=== PATIENT | male | born 1980 | race Caucasian/White ===

== ENCOUNTER 2018-06-11 09:25 | Day surgery (SDC) | payer BC ==
[~2018-06-11 09:25] MED LIST: BENZOIN/ALOE VERA/STORAX/TOLU 58 ML BOTTLE TP ONE; BUPIVACAINE HCL/PF (5 MG/ML) 30 ML VIAL IJ ONE
[2018-06-11] MEDS ORDERED: SODIUM CHLORIDE 1,000 ML IV STA (09:54)
--- NOTE | 2018-06-11 10:00 | PDOC ---
History of Present Illness - General Chief Complaint: Pain Stated Complaint: RIGHT ABD PAIN Time Seen by Provider: 06/11/18 09:43 History Source: Patient, Family Exam Limitations: No Limitations - History of Present Illness Initial Comments: 06/11/18 09:56 CC: RLQ pain since midnight last night HPI: was well all day yesterday, ate normally awake from sleep at [place] last night with RLQ focal pain no N/V/D nl BM this am no dysuria but RLQ pain feels a little different after urination no fever or chills no hx of abd surgery PMH: circumcision for phimosis ROS: no f/c no n/v no diarrhea or constipation no recent uri or cough no cp or sob no leg swelling or pain no skin rash no dysuria or frequency no testicular pain or masses Past History - Past Medical History Allergies/Adverse Reactions: Allergies Allergy/AdvReac Type Severity Reaction Status Date / Time No Known Allergies Allergy Verified 06/11/18 09:41 Home Medications: Ambulatory Orders Bismuth Subsalicylate [Pepto-Bismol -] 524 mg PO ONCE 06/11/18 Asthma: No COPD: No Diabetes: No HTN: No - Surgical History Other Surgical History: 06/11/18 09:58 circumcision for phimosis - Suicide/Smoking/Psychosocial Hx Smoking History: Never smoked Hx Alcohol Use: Yes (OCCASIONAL) Drug/Substance Use Hx: No Substance Use Type: None *Physical Exam - Vital Signs Last Vital Signs Temp Pulse Resp BP Pulse Ox 98.9 F 73 16 130/88 99 06/11/18 09:40 06/11/18 09:40 06/11/18 09:40 06/11/18 09:40 06/11/18 09:40 - Physical Exam Comments: 06/11/18 09:59 GENERAL: The patient is awake, alert, and fully oriented, in no acute distress. HEAD: Normal with no signs of trauma. EYES: Pupils equal, round and reactive to light, extraocular movements intact, sclera anicteric, conjunctiva clear. ENT: Ears normal, nares patent, oropharynx clear without exudates. Moist mucous membranes. NECK: Normal range of motion, supple without lymphadenopathy, JVD, or masses. LUNGS: Breath sounds equal, clear to auscultation bilaterally. No wheezes, and no crackles. HEART: Regular rate and rhythm, normal S1 and S2 without murmur, rub or gallop. ABDOMEN: Soft, positive focal McBurney's point tenderness, normoactive bowel sounds. No guarding, no rebound. No masses. : nl testes, NT, nl phallus, no discharge EXTREMITIES: Normal range of motion, no edema. No clubbing or cyanosis. No cords, erythema, or tenderness. NEUROLOGICAL: Cranial nerves II through XII grossly intact. Normal speech, normal gait. PSYCH: Normal mood, normal affect. SKIN: Warm, Dry, normal turgor, no rashes or lesions noted. Moderate Sedation - Procedure Monitoring Vital Signs: Procedure Monitoring Vital Signs Temperature 98.9 F 06/11/18 09:40 Pulse Rate 73 06/11/18 09:40 Respiratory Rate 16 06/11/18 09:40 Blood Pressure 130/88 06/11/18 09:40 O2 Sat by Pulse Oximetry (%) 99 06/11/18 09:40 ED Treatment Course - LABORATORY CBC & Chemistry Diagram: 06/11/18 10:05 06/11/18 10:05 - RADIOLOGY Radiology Studies Ordered: Category Date Time Status ABDOMEN & PELVIS CT WITH CONTR [CT] Stat CT Scan 06/11/18 09:53 Ordered Medical Decision Making - Medical Decision Making 06/11/18 11:44 Patient with RLQ pain since last night, no other symptoms. On exam there is focal tenderness at McBurneys point. CT positive for early appendicitis. Surgical consult requested. Antibiotics ordered. 06/11/18 12:[address] Rodriguez in the OR at [facility], and to SERENITY Cartwright in OR they advised send over to [facility] by ambulance for anticipated OR Dr. Rodriguez will see the patient in PACU there labs reviewed, stable patient remains NPO since last night Laboratory Results - last 24 hr 06/11/18 06/11/18 06/11/18 09:55 10:05 10:05 WBC 7.9 RBC 5.05 Hgb 15.0 Hct 45.9 MCV 90.9 MCH 29.7 MCHC 32.7 RDW 13.3 Plt Count 200 MPV 9.8 Absolute Neuts (auto) 5.4 Neutrophils % 67.0 Lymphocytes % 26.7 Monocytes % 4.2 Eosinophils % 1.5 Basophils % 0.6 Sodium 137 Potassium 4.1 Chloride 102 Carbon Dioxide 28 Anion Gap 7 L BUN 16 Creatinine 0.9 Creat Clearance w eGFR 93.46 Random Glucose 93 Calcium 9.2 Total Bilirubin 0.7 AST 21 ALT 29 Alkaline Phosphatase 53 Total Protein 7.8 Albumin 4.1 Urine Color Yellow Urine Appearance Clear Urine pH 7.0 Urine Protein Negative Urine Glucose (UA) Negative Urine Ketones Negative Urine Blood Negative Urine Nitrite Negative Urine Bilirubin Negative Urine Urobilinogen 0.2 Ur Leukocyte Esterase Negative *DC/Admit/Observation/Transfer Diagnosis at time of Disposition: Appendicitis, acute Qualifiers: Acute appendicitis type: unspecified acute appendicitis type Qualified Code(s) : K35.80 - Unspecified acute appendicitis - Discharge Dispostion Condition at time of disposition: Good Decision to Admit order: Yes Decision to Admit order Date/Time: 06/11/18 12:26 Dr Rodriguez accepting at [facility] - Referrals Referrals: Leonor Martini MD [Primary Care Provider] - - Patient Instructions - Post Discharge Activity
[2018-06-11 10:19] LABS: BASO % 0.6 % (0-2.0); EOS % 1.5 % (0-4.5); HEMATOCRIT 45.9 % (35.4-49); LYMPH % 26.7 % (8-40); MCH 29.7 pg (25.7-33.7); MCHC 32.7 g/dl (32.0-35.9); MEAN CELL VOLUME 90.9 fl (80-96); MEAN PLT VOLUME 9.8 fl (7.5-11.1); MONO % 4.2 % (3.8-10.2); PLATELET COUNT 200 K/MM3 (134-434); RBC 5.05 M/mm3 (4.00-5.60); RDW 13.3 % (11.9-15.9); WHITE BLOOD COUNT 7.9 K/mm3 (4.0-10.8)
[2018-06-11 10:31] LABS: ALBUMIN 4.1 g/dl (3.4-5.0); ALK PHOS 53 U/L (45-117); ANION GAP 7 MMOL/L (8-16); BILIRUBIN,TOTAL 0.7 mg/dl (0.2-1); BLOOD UREA NITROGEN 16 mg/dl (7-18); CALCIUM 9.2 mg/dl (8.5-10); CHLORIDE 102 mmol/L (98-107); CO2 28 mmol/L (21-32); CREATININE 0.9 mg/dl (0.55-1.3); GLUCOSE,RANDOM 93 mg/dl (74-106); POTASSIUM 4.1 mmol/L (3.5-5.1); SGOT/AST 21 U/L (15-37); SGPT/ALT 29 U/L (13-61); SODIUM 137 mmol/L (136-145); TOT PROT 7.8 g/dl (6.4-8.2)
[2018-06-11] MEDS ORDERED: PIPERACILLIN/TAZOB 4.5 GM 4.5 GM in DEXTROSE 5%-WATER 100 ML IVPB ONE (11:46)
[2018-06-11] MEDS ORDERED: PIPERACILLIN/TAZOBACTAM 4.5 GM VIAL IVPB ONE (11:47)
[2018-06-11] MEDS ORDERED: PROMETHAZINE HCL 25 MG/1 ML VIAL IVPUSH PRN (13:52)
[2018-06-11] MEDS ORDERED: ONDANSETRON 4 MG/2 ML VIAL IVPUSH PRN (13:52)
[2018-06-11] MEDS ORDERED: BUPIVACAINE HCL/PF 0.5% (5MG/ML) 10 ML VIAL ONE (13:53)
[2018-06-11] MEDS ORDERED: ROCURONIUM BROMIDE 50 MG/5 ML VIAL ONE (14:04)
[2018-06-11] MEDS ORDERED: PROPOFOL 20 ML ONE ×2 (14:04→16:35)
--- NOTE | 2018-06-11 14:39 | HP ---
Admitting History and Physical - Primary Care Physician PCP: Seth Chaidez I - Admission Chief Complaint: RLQ pain History of Present Illness: 38yo M with h/o PUD, s/p endoscopy and circumcision, presented to [facility] ER with RLQ pain beginning overnight, though on retrospect he noted gas pains/ generalized abdominal discomfort at first. This was not associated with F/C, anorexia, D/C, N/V. It did not respond to pepto-bismol either. In the ER, he had normal wbc, and CT shows acute appendicitis. He was transferred from [facility] to [facility] for surgery evaluation and OR. He is seen and examined in OR holding/PACU area with present. He notes RLQ pain still present, though not overwhelming. He had IVF and Zosyn already. He has voided more than once. Last po was some water about 3am, and last night's dinner. He is not febrile, and had a normal BM yesterday. 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 Home Medications - Allergies Allergies/Adverse Reactions: Allergies Allergy/AdvReac Type Severity Reaction Status Date / Time No Known Allergies Allergy Verified 06/11/18 09:41 - Home Medications Home Medications: Ambulatory Orders Bismuth Subsalicylate [Pepto-Bismol -] 524 mg PO ONCE 06/11/18 Family Disease History - Family Disease History Family Disease History: Heart Disease: Father (ESRD on HD, HTN), CA: Mother ( uterine, HTN), Other: Father, Mother Review of Systems - Review of Systems Constitutional: denies: Chills, Fever, Loss of Appetite Eyes: denies: Blurred Vision, Recent Change in Vision HENT: reports: Nasal Congestion (recently). denies: Difficult Swallowing, Throat Pain Neck: denies: Swollen Glands, Tenderness Cardiovascular: denies: Chest Pain, Palpitations Respiratory: denies: Cough, SOB Gastrointestinal: reports: Abdominal Pain (with hpi). denies: Constipation, Diarrhea, Nausea, Vomiting Genitourinary: denies: Burning, Dysuria Musculoskeletal: reports: Back Pain (occasional, work-related). denies: Joint Pain, Muscle Pain Integumentary: denies: Change in Color, Rash Neurological: denies: Dizziness, Headache Psychiatric: denies: Anxiety, Depression Physical Examination Vital Signs: Vital Signs Temperature 98.4 F 06/11/18 12:26 Pulse Rate 110 H 06/11/18 12:26 Respiratory Rate 16 06/11/18 12:26 Blood Pressure 145/87 06/11/18 12:26 O2 Sat by Pulse Oximetry (%) 100 06/11/18 12:05 Constitutional: Yes: Well Nourished, No Distress, Calm Eyes: Yes: Conjunctiva Clear, EOM Intact HENT: Yes: Atraumatic, Normocephalic Neck: Yes: Supple, Trachea Midline Cardiovascular: Yes: Regular Rate and Rhythm. No: Murmur Respiratory: Yes: Regular, CTA Bilaterally Gastrointestinal: Yes: Normal Bowel Sounds, Soft, Hernia (small reducible umbilical), Tenderness (RLQ without R/G) ...Rectal Exam: Yes: Deferred Renal/: No: CVA Tenderness - Left, CVA Tenderness - Right Musculoskeletal: No: Back Pain, Joint Swelling Extremities: No: Cool, Cyanosis Edema: No Peripheral Pulses WNL: Yes Integumentary: No: Jaundice, Rash Neurological: Yes: Alert, Oriented Psychiatric: Yes: Alert, Oriented Labs: CBC, BMP 06/11/18 10:05 06/11/18 10:05 CMP Sodium 137 mmol/L (136-145) 06/11/18 10:05 Potassium 4.1 mmol/L (3.5-5.1) 06/11/18 10:05 Chloride 102 mmol/L (98-107) 06/11/18 10:05 Carbon Dioxide 28 mmol/L (21-32) 06/11/18 10:05 Anion Gap 7 MMOL/L (8-16) L 06/11/18 10:05 BUN 16 mg/dl (7-18) 06/11/18 10:05 Creatinine 0.9 mg/dl (0.55-1.3) 06/11/18 10:05 Creat Clearance w eGFR 93.46 (>60) 06/11/18 10:05 Random Glucose 93 mg/dl (74-106) 06/11/18 10:05 Calcium 9.2 mg/dl (8.5-10) 06/11/18 10:05 Total Bilirubin 0.7 mg/dl (0.2-1) 06/11/18 10:05 AST 21 U/L (15-37) 06/11/18 10:05 ALT 29 U/L (13-61) 06/11/18 10:05 Alkaline Phosphatase 53 U/L (45-117) 06/11/18 10:05 Total Protein 7.8 g/dl (6.4-8.2) 06/11/18 10:05 Albumin 4.1 g/dl (3.4-5.0) 06/11/18 10:05 Urine Test Results Urine Color Yellow 06/11/18 09:55 Urine Appearance Clear 06/11/18 09:55 Urine pH 7.0 (4.5-8) 06/11/18 09:55 Urine Protein Negative (NEGATIVE) 06/11/18 09:55 Urine Glucose (UA) Negative (NEGATIVE) 06/11/18 09:55 Urine Ketones Negative (NEGATIVE) 06/11/18 09:55 Urine Blood Negative (NEGATIVE) 06/11/18 09:55 Urine Nitrite Negative (NEGATIVE) 06/11/18 09:55 Urine Bilirubin Negative (NEGATIVE) 06/11/18 09:55 Ur Leukocyte Esterase Negative (NEGATIVE) 06/11/18 09:55 Imaging - Results Cat Scan: Report Reviewed, Image Reviewed (images reviewed - enlarged, inflamed appendix without abscess or free fluid/air) Problem List - Problems (1) Acute appendicitis without mention of peritonitis Assessment/Plan: admit to surgery NPO/IVF until postop periop antibiotics, started by ER GI/DVT prophylaxis Discussed with patient risks, benefits and alternatives of laparoscopic possible open appendectomy, including but not limited to bleeding, infection, injury to adjacent structures, intestinal leak or injury, intraabdominal abscess , incisional hernia, need for further procedures, ; alternatives include antibiotics, delayed or no surgery - risks of this include failure of nonoperative therapy, perforation, sepsis, recurrence, . Patient desires to proceed with operation - will take to OR for above. Informed consent signed for same. Code(s): K35.80 - UNSPECIFIED ACUTE APPENDICITIS Qualifiers: Acute appendicitis type: with localized peritonitis Appendicitis gangrene presence: without gangrene Appendicitis perforation presence: without perforation Appendicitis abscess presence: without abscess Qualified Code(s) : K35.30 - Acute appendicitis with localized peritonitis, without perforation or gangrene (2) RLQ abdominal pain Code(s): R10.31 - RIGHT LOWER QUADRANT PAIN (3) Right lower quadrant abdominal tenderness without rebound tenderness Code(s): R10.813 - RIGHT LOWER QUADRANT ABDOMINAL TENDERNESS (4) PUD (peptic ulcer disease) Code(s): K27.9 - PEPTIC ULC, SITE UNSP, UNSP AC OR CHR, W/O HEMOR OR PERF
[2018-06-11] MEDS ORDERED: MIDAZOLAM HCL 2 MG/2 ML SINGLE DOSE VIAL ONE (15:33)
[2018-06-11] MEDS ORDERED: CEFOXITIN SODIUM 2 GM IVPB ONE (15:44)
[2018-06-11] MEDS ORDERED: ACETAMINOPHEN INJECTION 100 ML IVPB ONE (15:46)
[2018-06-11] MEDS ORDERED: SODIUM CHLORIDE 0.9% P/F 10 ML VIAL IJ ONE (15:52)
[2018-06-11] MEDS ORDERED: cefOXitin SODIUM 1 GM VIAL (RESTRICTED TO ID) IVPB ONE (15:52)
[2018-06-11] MEDS ORDERED: DEXAMETHASONE SOD PHOSPHATE 4 MG/1 ML VIAL ONE (15:56)
[2018-06-11] MEDS ORDERED: KETOROLAC TROMETHAMINE 30 MG/1 ML VIAL ONE (16:52)
[2018-06-11] MEDS ORDERED: GLYCOPYRROLATE 0.2 MG/1 ML VIAL ONE (17:05)
[2018-06-11] MEDS ORDERED: NEOSTIGMINE METHYLSULFATE 0.5 MG/ML - 10 ML MDV ONE (17:05)
[2018-06-11] MEDS ORDERED: BUPIVACAINE HCL/PF (5 MG/ML) 30 ML VIAL IJ ONE (17:10)
[2018-06-11] MEDS ORDERED: BENZOIN/ALOE VERA/STORAX/TOLU 58 ML BOTTLE TP ONE (17:12)
--- NOTE | 2018-06-11 17:37 | OP ---
Operative Note - Note: Operative Date: 06/11/18 Pre-Operative Diagnosis: acute appendicitis, umbilical hernia Operation: laparoscopic appendectomy, primary umbilical hernia repair Findings: small umbilical hernia defect used for camera/Saad port, preperitoneal fat excised but sac not sent, defect closed with [id number] out; enlarged, inflamed appendix with scant yellow fluid in pelvis Post-Operative Diagnosis: Same as Pre-op Surgeon: Devante Rodriguez Anesthesiologist/JACQUARD FIXER: Oleg Parson Anesthesia: General, Local (10ml 0.5% marcaine) Specimens Removed: appendix to pathology Estimated Blood Loss (mls): 10 Drains & Tubes with Location: Mccarthy out at end of case Drains, Volume Out (mls): 200 (UOP) Fluid Volume Replaced (mls): 800 (crystalloid) Operative Report Dictated: Yes
[2018-06-11] MEDS: LACTATED RINGERS SOLUTION 1,000 ML IV SCH ×3 (17:50→18:33)
[2018-06-11 18:46] VITALS: BMI 26.0
[2018-06-11] MEDS ORDERED: ACETAMINOPHEN 325 MG TABLET (FP) PO SCH (21:00)
[2018-06-11] MEDS: ACETAMINOPHEN 325 MG TABLET (FP) PO SCH (21:00)
[2018-06-11] MEDS: RANITIDINE HCL 150 MG TABLET (FP) PO SCH (21:17)
[2018-06-11] MEDS ORDERED: RANITIDINE HCL 150 MG TABLET (FP) PO SCH (22:00)
[2018-06-11] MEDS ORDERED: PT OWN MED DRAWER 7, Y5N ONE (23:40)
[2018-06-12] MEDS ORDERED: IBUPROFEN 600 MG TABLET (FP) PO SCH
[2018-06-12] MEDS ORDERED: CEFOXITIN SODIUM/DEXTROSE,ISO 2 GM/50 ML BAG IVPB SCH
[2018-06-12] MEDS: IBUPROFEN 600 MG TABLET (FP) PO SCH ×3 (00:03→12:42)
[2018-06-12] MEDS: LACTATED RINGERS SOLUTION 1,000 ML IV SCH (00:03)
[2018-06-12] MEDS: CEFOXITIN SODIUM/DEXTROSE,ISO 2 GM/50 ML BAG IVPB SCH ×3 (00:04→15:26)
[2018-06-12] MEDS: ACETAMINOPHEN 325 MG TABLET (FP) PO SCH ×3 (03:19→15:02)
[2018-06-12] MEDS: RANITIDINE HCL 150 MG TABLET (FP) PO SCH (08:59)
--- NOTE | 2018-06-12 10:58 | PN ---
Progress Note, Physician Chief Complaint: Abdominal pain S/p Appendectomy History of Present Illness: Previous notes and events reviewed awake and alert NAD s/p appendectomy POD #1 no BM but sts passing flatus c/o dizziness when ambulating--EKG ordered - Current Medication List Current Medications: Active Medications Acetaminophen (Tylenol -) 650 mg PO Q6H [facility] Last Admin: 06/12/18 08:59 Dose: 650 mg Cefoxitin Sodium (Mefoxin Premix (Restricted To Id)) 2 gm in 50 mls @ 100 mls/ hr IVPB Q8H [facility]; Protocol Stop: 06/12/18 16:29 Last Admin: 06/12/18 08:59 Dose: 100 mls/hr Lactated Ringer's (Lactated Ringers Solution) 1,000 mls @ 125 mls/hr IV ASDIR [facility] Last Admin: 06/12/18 00:03 Dose: 125 mls/hr Ibuprofen (Motrin -) 600 mg PO Q6H [facility] Last Admin: 06/12/18 05:53 Dose: 600 mg Ranitidine HCl (Zantac -) 150 mg PO BID [facility] Last Admin: 06/12/18 08:59 Dose: 150 mg - Objective Vital Signs: Vital Signs Temperature 98.4 F 06/12/18 06:00 Pulse Rate 94 H 06/12/18 06:00 Respiratory Rate 18 06/12/18 06:00 Blood Pressure 124/66 06/12/18 06:00 O2 Sat by Pulse Oximetry (%) 95 06/12/18 08:10 Constitutional: Yes: No Distress, Calm Eyes: Yes: Conjunctiva Clear HENT: Yes: Atraumatic Neck: Yes: Supple Cardiovascular: Yes: Regular Rate and Rhythm Respiratory: Yes: Regular, CTA Bilaterally Gastrointestinal: Yes: Normal Bowel Sounds, Soft Musculoskeletal: Yes: WNL Extremities: Yes: WNL Edema: No Wound/Incision: Yes: Dressing Dry and Intact Neurological: Yes: Alert, Oriented Psychiatric: Yes: Alert, Oriented Labs: CBC, BMP 06/11/18 10:05 06/11/18 10:05 Problem List - Problems (1) Appendicitis, acute Assessment/Plan: -POD #1 s/p appendectomy -admitted to surgery -pain management -cont IV cefoxitin -IV hydration -incentive spirometer Code(s): K35.80 - UNSPECIFIED ACUTE APPENDICITIS Qualifiers: Acute appendicitis type: unspecified acute appendicitis type Qualified Code (s): K35.80 - Unspecified acute appendicitis Assessment/Plan see problem list dvt ppx
--- NOTE | 2018-06-12 13:03 | PN ---
Progress Note, Physician History of Present Illness: s/p lap appy for acute appendicitis seen and examined in bed with family present had some dizziness with ambulation earlier and EKG showed sinus tach but otherwise ok feeling better, still with some pain but ok with tylenol and ibuprofen tolerated diet, lunch just arrived passing gas but no BM yet, also belching distended abdomen voiding, ambulating no fevers or nausea - Current Medication List Current Medications: Active Medications Acetaminophen (Tylenol -) 650 mg PO Q6H [facility] Last Admin: 06/12/18 08:59 Dose: 650 mg Cefoxitin Sodium (Mefoxin Premix (Restricted To Id)) 2 gm in 50 mls @ 100 mls/ hr IVPB Q8H [facility]; Protocol Stop: 06/12/18 16:29 Last Admin: 06/12/18 08:59 Dose: 100 mls/hr Lactated Ringer's (Lactated Ringers Solution) 1,000 mls @ 125 mls/hr IV ASDIR [facility] Last Admin: 06/12/18 00:03 Dose: 125 mls/hr Ibuprofen (Motrin -) 600 mg PO Q6H [facility] Last Admin: 06/12/18 12:42 Dose: 600 mg Ranitidine HCl (Zantac -) 150 mg PO BID [facility] Last Admin: 06/12/18 08:59 Dose: 150 mg - Objective Vital Signs: Vital Signs Temperature 98.4 F 06/12/18 06:00 Pulse Rate 94 H 06/12/18 06:00 Respiratory Rate 18 06/12/18 06:00 Blood Pressure 124/66 06/12/18 06:00 O2 Sat by Pulse Oximetry (%) 95 06/12/18 08:10 Constitutional: Yes: Well Nourished, No Distress, Calm Eyes: Yes: Conjunctiva Clear, EOM Intact HENT: Yes: Atraumatic, Normocephalic Cardiovascular: Yes: Regular Rate and Rhythm, Tachycardia (slight) Respiratory: Yes: Regular, CTA Bilaterally Gastrointestinal: Yes: Soft, Distention (with tympany), Hypoactive Bowel Sounds , Tenderness (RLQ, less RUQ, minimal incisional, no rebound/guarding) Extremities: No: Cool, Cyanosis Integumentary: Yes: Incision (x3 dressed), Tattoos. No: Jaundice, Rash Wound/Incision: Yes: Steri Strips (under dressings), Dressing Dry and Intact (x3 ). No: Dressing Removed Neurological: Yes: Alert, Oriented. No: Unsteady Gait Labs: no new labs Problem List - Problems (1) Acute appendicitis without mention of peritonitis Assessment/Plan: admitted to surgery [facility]/23H POD1 s/p laparoscopic appendectomy with primary umbilical hernia repair periop antibiotics completing today GI/DVT prophylaxis ambulating, voiding, tolerating po pain controlled with po nonnarcotics abdomen still fairly distended encouraged to be OOB and walking, avoid carbonated beverages will likely d/c later today when distention decreases to f/u in 2 wks lifting restrictions Code(s): K35.80 - UNSPECIFIED ACUTE APPENDICITIS Qualifiers: Acute appendicitis type: with localized peritonitis Appendicitis gangrene presence: without gangrene Appendicitis perforation presence: without perforation Appendicitis abscess presence: without abscess Qualified Code(s) : K35.30 - Acute appendicitis with localized peritonitis, without perforation or gangrene (2) RLQ abdominal pain Assessment/Plan: improved Code(s): R10.31 - RIGHT LOWER QUADRANT PAIN (3) Right lower quadrant abdominal tenderness without rebound tenderness Assessment/Plan: appropriate postop Code(s): R10.813 - RIGHT LOWER QUADRANT ABDOMINAL TENDERNESS (4) PUD (peptic ulcer disease) Assessment/Plan: zantac po Code(s): K27.9 - PEPTIC ULC, SITE UNSP, UNSP AC OR CHR, W/O HEMOR OR PERF
--- NOTE | 2018-06-12 17:47 | DS ---
Physical Examination Vital Signs: Vital Signs Temperature 98.7 F 06/12/18 14:00 Pulse Rate 100 H 06/12/18 10:00 Respiratory Rate 26 H 06/12/18 14:00 Blood Pressure 117/80 06/12/18 14:00 O2 Sat by Pulse Oximetry (%) 95 06/12/18 08:10 Findings/Remarks: seen and examined earlier in bed - now has been ambulating, OOB more, feeling better Constitutional: Yes: Well Nourished, No Distress, Calm Eyes: Yes: Conjunctiva Clear, EOM Intact HENT: Yes: Atraumatic, Normocephalic Neck: Yes: Supple, Trachea Midline Cardiovascular: Yes: Regular Rate and Rhythm Respiratory: Yes: Regular, CTA Bilaterally Gastrointestinal: Yes: Soft, Distention (less than this morning with much less tympany), Tenderness (mild RLQ and incisional only) Extremities: No: Cool, Cyanosis Integumentary: Yes: Incision (x3 dressed). No: Jaundice, Rash Wound/Incision: Yes: Steri Strips (under dressings), Dressing Dry and Intact (x3 ). No: Dressing Removed Neurological: Yes: Alert, Oriented. No: Unsteady Gait Labs: no new labs Discharge Summary Reason For Visit: ACUTE APPENDICITIS Current Active Problems Acute appendicitis without mention of peritonitis (Acute) Umbilical hernia without obstruction and without gangrene (Acute) RLQ abdominal pain (Acute) Right lower quadrant abdominal tenderness without rebound tenderness (Acute) PUD (peptic ulcer disease) (Acute) Procedures: Principal: laparoscopic appendectomy with primary umbilical hernia repair Hospital Course: 38yo M with h/o PUD presented to ER at [place] with acute RLQ pain, initially more central/generalized but mainly RLQ without associated symptoms. He was afebrile with normal wbc, and CT showed acute appendicitis without rupture or abscess. He was transferred to [facility] for surgery, and noted also to have an umbilical hernia with fatty content. Laparoscopic appendectomy with primary umbilical hernia repair was performed with findings of enlarged, inflamed appendix, and perioperative antibiotics were given. Postop, he has been ambulating, tolerating diet, pain managed with alternating tylenol and ibuprofen, and he has voided easily. This morning, he was a little dizzy with walking, EKG showed only sinus tachycardia, which has also improved. Abdomen was distended still earlier, but this has improved over today, and he is ready for discharge home with lifting restrictions, to f/u with surgery in 2 weeks and PMD in 1-2 weeks. Time spent on discharge 35 minutes. Condition: Improved - Instructions Diet, Activity, Other Instructions: Postoperative instructions: You had a laparoscopic appendectomy with umbilical hernia repair on 06/11/[address] Devante Rodriguez of [facility]. Activity: Resume your usual activities gradually, but no heavy exertion or lifting more than 10-15 pounds for 1 month. Remove dressings 48 hours after surgery; sticky tapes underneath will fall off by themselves. You may shower daily starting then, just pat the incision areas dry. No bath or swimming until skin incisions have healed. Eat lightly at first, but advance to your usual diet as tolerated. Pain: For pain, you may use and alternate Tylenol (acetaminophen) 1-2 pills and/ or ibuprofen 200 mg (1-3 pills) every 6 hours each as needed; this means that you can take one OR the other at 3-hour intervals. If you are prescribed a Tylenol/narcotic combination for severe pain, use it instead of plain Tylenol as needed and switch back when your pain starts decreasing. Do not take more than 4000mg of acetaminophen in a day. Take medications as prescribed or indicated on the labeling. Follow-up: Call Dr. Rodriguez's office at [phone] to make your postop appointment (Wednesday in approximately 2 weeks after surgery). Clinic is held in the [facility] on the first floor of [facility]. Call the office if you have: * increasing pain not responsive to pain medication * fever of 101F or higher * vomiting * unusual or increasing bleeding or drainage from wounds * increasing redness or swelling at wound sites Also, see your primary medical doctor (Dr. Chaidez) within 1-2 weeks. Referrals: Seth Chaidez MD [Staff Physician] - Disposition: HOME - Home Medications Comprehensive Discharge Medication List: Ambulatory Orders Acetaminophen [Tylenol .Regular Strength -] 650 mg PO Q6H tablet 06/12/18 Ibuprofen [Motrin -] 600 mg PO Q6H tablet 06/12/18
[2018-06-12 18:11] VITALS: BP 112/78; PULSE 98; TEMP 98.9
--- NOTE | 2018-06-12 23:46 | EKG ---
Test Reason : Blood Pressure : / mmHG Vent. Rate : 122 BPM Atrial Rate : 122 BPM P-R Int : 134 ms QRS Dur : 090 ms QT Int : 338 ms P-R-T Axes : 041 -06 029 degrees QTc Int : 481 ms SINUS TACHYCARDIA OTHERWISE NORMAL ECG WHEN COMPARED WITH ECG OF 11-MAR-2013 16:57, NO SIGNIFICANT CHANGE WAS FOUND Confirmed by SCOTT GONGORA MD ([id number]) on 06/12/2018 11:45:57 PM Referred By: Jason SANCHEZ Confirmed By:SCOTT GONGORA MD
--- NOTE | 2018-06-14 12:55 | PATH ---
Surgical Pathology Report Patient Name: RALPH CALLE [facility]. Rec. #: [id number] /Age/Gender: 1980 (Age: 38) / M Account: [id number] Location: AMBULATORY SURG Taken: 06/11/2018 Received: 06/13/2018 Reported: 06/14/2018 Physicians: Devante Rodriguez M.D. PHYSICIAN EMERGENCY DEPT Specimen(s) Received APPENDIX Clinical History Acute appendicitis, umbilical hernia Final Diagnosis APPENDIX, APPENDECTOMY: ACUTE APPENDICITIS AND PERIAPPENDICITIS. Electronically Signed Remington Rodriguez M.D. Gross Description Received in formalin, labeled "appendix," is a 9 cm. in length vermiform appendix with a stapled margin of resection and minimal attached fat. The serosa is shafer-pollack and smooth. Sectioning reveals a hemorrhagic lumen. The wall of the appendix averages 0.2 cm. in thickness. Roof Bolter Helper sections are submitted in one cassette. /06/13/2018 saudi/06/13/2018
--- NOTE | 2018-06-25 07:36 | OP ---
DATE OF OPERATION: 06/11/2018 PREOPERATIVE DIAGNOSIS: Acute appendicitis and umbilical hernia. POSTOPERATIVE DIAGNOSIS: Acute appendicitis and umbilical hernia. PROCEDURE: Laparoscopic appendectomy and primary umbilical hernia repair. SURGEON: Devante Rodriguez MD ANESTHESIA: General endotracheal and local 10 mL of 0.5% Marcaine. ESTIMATED BLOOD LOSS: 10 mL. FLUIDS: 800 mL crystalloid. URINE OUTPUT: 200 mL. SPECIMEN: Appendix to pathology. FINDINGS: A small umbilical hernia defect used for the camera/Corona port. Preperitoneal fat excised. Sac not sent. Defect was closed with [id number] stitch and tied on the way out. The appendix was enlarged and inflamed with scant yellow fluid in the pelvis. DISPOSITION: Stable and extubated to PACU. INDICATIONS FOR PROCEDURE: The patient is a 38-year-old male with a history of peptic ulcer disease status post endoscopy and also circumcision who initially presented to the [facility] Emergency Room with right lower quadrant pain beginning overnight, although on retrospect he realized he has generalized abdominal discomfort and gas pains at first. He had no associated symptoms, but the pain did not respond to Pepto Bismol. He had come to the emergency room where he was found to have a normal white blood cell count, but a CT showed acute appendicitis. He was transferred from [facility] to [facility] for surgery evaluation and operation. He had been given IV fluids and a dose of Zosyn preoperatively. Had been n.p.o. since 3 a.m. and was afebrile. He was noted on physical exam to have a small, reducible umbilical hernia and tenderness in the right lower quadrant without rebound or guarding. Risks, benefits, and alternatives of laparoscopic, possible open, appendectomy with possible umbilical hernia repair were discussed with the patient including, but not limited to, bleeding, infection, injury to adjacent structures, intestinal leak or injury, intra-abdominal abscess, incisional hernia including recurrent hernia, need for further procedures, or and alternatives inclusive of antibiotics and delayed or no surgery with the potential risks of failure of nonoperative therapy, perforation, sepsis, recurrence, or . The patient desired to proceed with operation, signed informed consent for the same, and is now brought to the OR for this procedure. OPERATIVE TECHNIQUE: The patient was brought to the operating room and laid supine on the operating table. Sequential compression devices were applied to bilateral lower extremities, Cefoxitin was given in the OR as preoperative antibiotic as the previous dose of Zosyn had been several hours prior and was not yet at study state. After induction and intubation by Anesthesia, a Mccarthy catheter was placed in the patient's bladder, which was removed at the end of the case. His abdomen was clipped of hair, prepped and draped in sterile fashion primary in the lower abdomen and periumbilical area. A small infraumbilical incision extending directly into the umbilicus was made with a scalpel and carried to the subcutaneous tissues with electrocautery until the abdominal wall fascia was identified at the inferior edge of the umbilicus, and there was preperitoneal fat content in the umbilical hernia, which was identified, grasped, and excised above the level of the fascia. With entry into the peritoneal cavity confirmed with a fingertip through the umbilical hernia defect itself, the underside of the defect was cleared bluntly with a fingertip to ensure that there was no other content nor underlying adhesions, per se. The preperitoneal fat and hernia sac were not sent, but a [id number] 0 Vicryl suture was placed as a stay suture through the fascia at the edges of this defect to be tied and closed on the way out to effectively repair the hernia. A Saad trocar was then introduced directly through this opening and secured in place with the balloon. The abdomen was insufflated with carbon dioxide and the patient placed in Trendelenburg position with the right side planed upward. A camera was inserted to inspect the abdominal cavity. There was a scant amount of yellow fluid noted in the pelvis, which was ultimately suctioned prior to completing the procedure. The appendix was visible and was noted to be both enlarged and inflamed. Two additional 5-mm ports were placed under direct vision in the left lower quadrant and suprapubic areas and the camera switched to the left lower quadrant port. Two graspers were introduced through the other 2 ports and used to gently manipulate the small bowel medially and up out of the pelvis as well as the grasp the appendix. I began carefully identifying the junction of the appendix of the cecum. A [place] dissector was then exchanged for one of the graspers and used to create a small window at the base of the appendix where it joined the cecum. The base itself appeared to be fairly normal. Once this window had been created, Endo MELVA stapler with a 45 purple load was introduced and used to transect the appendix at the cecal junction. The staple line was noted to be hemostatic. The appendix and its remaining mesoappendix was then held up with the other grasper care taken to identify the terminal ileum and veil of Treves and ensure that it was not stuck to the mesoappendix where the stapler was going to be used to completely transect the rest of the mesoappendix. A 2nd load of the Endo MELVA stapler was then used with a 60 white load, and this was manipulated with the appendix held up with the grasper such that the mesoappendix could be completely transected the appendix from the rest of the abdominal contents completely. Once this had been accomplished, the appendix was set aside momentarily, and again, the staple lines inspected for hemostasis, which appeared to be complete. A suction apparatus was set up to suction the tiny bit of yellow fluid present in the pelvis and some bloody fluid from the operative site. No irrigation was undertaken after which the appendix was placed in the EndoCatch bag and brought up into the Saad trocar. The abdomen was reinspected for hemostasis. At this point, the suprapubic port was removed under direct vision. The Saad trocar and appendix in the bag were removed en bloc once the balloon had been deflated also under direct vision then the camera and left lower quadrant port were removed directly from the abdominal cavity and the abdomen exsufflated of carbon dioxide. The appendix was passed off the table for pathology specimen. The stay suture at the umbilical defect was tied to close the hernia in that location and hemostasis achieved in the port sites with electrocautery, and all of them were needed. The skin was closed then with 4-0 Vicryl subcuticular sutures including a running at the umbilical site. Benzoin and Steri-Strips were applied to all incisions and dressings of gauze and Tegaderm placed over these. Counts were correct at the end of the procedure. The patient was then awakened and extubated by Anesthesia. The Mccarthy catheter having been removed from the bladder at the end of the case, he was then moved back to a stretcher and taken to the recovery room in stable condition having tolerated the procedure well. Devante Rodriguez M.D. [id number]
== END 2018-06-12 18:13 | disposition home or self-care (01) ==
LOC: FER 09:25 → JASUSAT 13:00 → J6S 18:25 → JASUSAT 06-12 18:13
PROVIDERS: ATTEND Surgery
PROC: 0WQF0ZZ Repair Abdominal Wall, Open Approach (ICD-10-PCS; 2018-06-11)
PROC: 0DTJ4ZZ Resection of Appendix, Percutaneous Endoscopic Approach (ICD-10-PCS; principal; 2018-06-11 14:30)
DX: K35.80 Unspecified acute appendicitis (principal); K42.9 Umbilical hernia without obstruction or gangrene
CPT/HCPCS: 36415; 74177-TC; 80053; 85025; 88304-TC; 93005; 93010; 94010; 94760; 99284-25; J0131; J7030

== ENCOUNTER 2022-01-18 09:05 | Emergency (ER) | payer BC ==
[2022-01-18 09:19] VITALS: BP 158/83; PULSE 86; RESP 18; TEMP 98.2; BMI 29.2
[2022-01-18] MEDS ORDERED: MECLIZINE HCL 25 MG TABLET (FP) PO ONE (10:30)
[2022-01-18] MEDS ORDERED: MECLIZINE HCL 25 MG TABLET (FP) ONE (10:31)
== END 2022-01-18 11:10 | disposition home or self-care (01) ==
LOC: JER 09:05
DX: R42 Dizziness and giddiness (principal)
CPT/HCPCS: 99283-25